=== PATIENT | female | born 1995 | race African-American/Black ===

== ENCOUNTER 2024-08-08 20:23 | Emergency (ER) | payer MEDICAID ==
[~2024-08-08] VITALS: Ht 167.6 cm; Wt 72.0 kg
[2024-08-08 21:26] VITALS: O2SAT 99
[2024-08-09] MEDS ORDERED: CYCL10TA21 MT (01:51)
[2024-08-09] MEDS ORDERED: IBUP-2028 MT (01:51)
[2024-08-09] MEDS: IBUPROFEN 400MG TABLET PO ONE (02:00)
[2024-08-09] MEDS: ACETAMINOPHEN 325MG TABLET PO ONE (02:00)
[2024-08-09 02:38] VITALS: BP 110/67; PULSE 67; RESP 17; TEMP 36.78072; O2SAT 99
== END 2024-08-09 02:40 | disposition home or self-care (01) ==
LOC: ER 20:23
DX: M54.2 Cervicalgia (principal); V89.2XXA Person injured in unspecified motor-vehicle accident, traffic, initial encounter; Y93.89 Activity, other specified; Y92.89 Other specified places as the place of occurrence of the external cause; Y99.8 Other external cause status
CPT/HCPCS: 81025; 99283